=== PATIENT | male | born 1980 | race Two or more races ===

== ENCOUNTER 2021-03-03 05:35 | Day surgery (SDC) | payer OTHER ==
[2021-03-03] MEDS ORDERED: RECTICARE30 GM TOP (10:04)
[2021-03-03] MEDS ORDERED: PERCOCET 5-3251 EACH PO (10:04)
== END 2021-03-03 13:50 | disposition home or self-care (01) ==
LOC: CIR.AMB 05:35
PROVIDERS: ATTEND Surgery
DX: K60.3 Anal fistula (principal); Z20.822 Contact with and (suspected) exposure to COVID-19